=== PATIENT | male | born 1955 | race Caucasian/White ===

== ENCOUNTER 2018-01-27 17:23 | Emergency (ER) | payer OTHER ==
[~2018-01-27] VITALS: Ht 167.6 cm; Wt 72.6 kg
[~2018-01-27 17:23] MED LIST: DURICEF500 MG; METFORMIN HCL500 MG PO; URSO FORTE500 MG; [UNRECOGNIZED DRUG - OTHER]
== END 2018-01-27 22:28 | disposition home or self-care (01) ==
LOC: ER 17:23
DX: E11.65 Type 2 diabetes mellitus with hyperglycemia (principal); Z91.14 Patient's other noncompliance with medication regimen

== ENCOUNTER 2021-12-31 18:49 | Inpatient (IN) | payer OTHER ==
[~2021-12-31] VITALS: Ht 152.4 cm; Wt 63.5 kg
[2021-12-31] MEDS ORDERED: HUMULIN 70100 UNIT/2 SQ (19:18)
[2021-12-31] MEDS ORDERED: LUMIGAN2.5 M1 OP (19:21)
[2021-12-31] MEDS ORDERED: ALPHAGAN P5 M2 OP (19:21)
[2021-12-31] MEDS ORDERED: TRUSOPT10 ML OP (19:22)
== END 2022-01-19 15:46 | disposition home or self-care (01) | DRG 638 ==
LOC: ER 18:49 → MEDJ 01-01 00:27 → SEC-K 01-01 00:27 → MEDJ 01-01 12:16
PROVIDERS: ADMIT Internal Medicine; ATTEND Internal Medicine
PROC: BQ3FZZZ Magnetic Resonance Imaging (MRI) of Left Lower Leg (ICD-10-PCS; principal; 2022-01-01)
PROC: 02HV33Z Insertion of Infusion Device into Superior Vena Cava, Percutaneous Approach (ICD-10-PCS; 2022-01-10)
DX: E11.621 Type 2 diabetes mellitus with foot ulcer (principal); E11.52 Type 2 diabetes mellitus with diabetic peripheral angiopathy with gangrene; L97.528 Non-pressure chronic ulcer of other part of left foot with other specified severity; M86.8X7 Other osteomyelitis, ankle and foot; I96 Gangrene, not elsewhere classified; L03.032 Cellulitis of left toe; Z79.4 Long term (current) use of insulin; E11.69 Type 2 diabetes mellitus with other specified complication; E11.628 Type 2 diabetes mellitus with other skin complications; Z20.822 Contact with and (suspected) exposure to COVID-19
CPT/HCPCS: 73725

== ENCOUNTER → 2022-02-05 | Emergency (ER) | payer OTHER ==
[~2022-02-05] VITALS: Ht 165.1 cm; Wt 65.8 kg
[~2022-02-05] MED LIST changes: +ALPHAGAN P5 M2 OP; +HUMULIN 70100 UNIT/2 SQ; +LUMIGAN2.5 M1 OP; +TRUSOPT10 ML OP
== END | disposition left against medical advice (07) ==
LOC: ER 15:07
DX: Z53.21 Procedure and treatment not carried out due to patient leaving prior to being seen by health care provider (principal)

== ENCOUNTER 2023-03-03 10:29 | Inpatient (IN) | payer OTHER ==
[~2023-03-03] VITALS: Ht 165.1 cm; Wt 65.8 kg
[2023-03-03 15:42] LABS: HEMATOCRIT 42.4 % (39.0-48.0); HEMOGLOBIN 14.5 g/dL (13-16.00); MEAN CELL VOLUME 88.8 fL (80.0-100.00); MEAN CORPUSCULAR HEMOGLOBIN 30.3 pg (27.00-32.0); MEAN CORPUSCULAR HGB CONC 34.1 g/dl (32.0-36.0); PLATELET COUNT 240 K/uL (150-450); RED BLOOD COUNT 4.78 M/uL (4.00-6.00); RED CELL DISTRIBUTION WIDTH 13.3 % (11.5-14.5)
[2023-03-03 16:08] LABS: ALBUMIN 3.8 gm/dL (3.4-5.0); BILIRUBIN TOTAL 0.44 mg/dL (0.3-1.2); CALCIUM 10.4 mg/dL (8.5-10.1); CREATININE SERUM 1.14 mg/dL (0.70-1.30); GFR 64.07; GLOBULINA 3.9 G/DL (2.4-3.5); POTASSIUM 4.55 mEq/L (3.5-5.1); TOTAL PROTEIN 7.7 gm/dL (6.4-8.2)
[2023-03-03 16:09] LABS: INR < 0.93; PARTIAL THROMBOPLASTIN TIME 20.7 SECONDS (22.0-34.0); PROTHROMBIN TIME 9.8 SECONDS (9.0-11.5)
[2023-03-03 17:27] LABS: PH,URINE 6.5 (5.0-8.0); URINE APPEARANCE Clear; URINE BILIRRUBIN Negative (NEGATIVE); URINE BLOOD Negative; URINE COLOR Yellow; URINE LEUKOCYTE Negative; URINE NITRATE Negative; URINE PROTEIN Trace (NEGATIVE); URINE UROBILINOGEN 0.2 E.U./dl
[2023-03-03 17:28] LABS: URINE RBC 6.3 uL (0.0-20.8)
[2023-03-03 17:36] LABS: URINE BACTERIA 0 uL (0.0-1933); URINE EPITHELIAL CELLS 0.7 uL (0.0-38.8); URINE GLUCOSE 100 MG/DL (NEGATIVE); URINE WBC 1.2 uL (0.0-23.2)
[2023-03-07 08:27] LABS: HEMATOCRIT 35.3 % (39.0-48.0); HEMOGLOBIN 12.3 g/dL (13-16.00); MEAN CELL VOLUME 87.2 fL (80.0-100.00); MEAN CORPUSCULAR HEMOGLOBIN 30.4 pg (27.00-32.0); MEAN CORPUSCULAR HGB CONC 34.9 g/dl (32.0-36.0); PLATELET COUNT 185 K/uL (150-450); RED BLOOD COUNT 4.05 M/uL (4.00-6.00)
[2023-03-07 08:37] LABS: ALBUMIN 3.2 gm/dL (3.4-5.0); BILIRUBIN TOTAL 0.2 mg/dL (0.3-1.2); CALCIUM 9.1 mg/dL (8.5-10.1); CREATININE SERUM 0.88 mg/dL (0.70-1.30); GFR 86.38; GLOBULINA 2.5 G/DL (2.4-3.5); MAGNESIUM 1.9 mg/dL (1.8-2.4); POTASSIUM 3.86 mEq/L (3.5-5.1); TOTAL PROTEIN 5.7 gm/dL (6.4-8.2)
[2023-03-07 08:38] LABS: C-REACTIVE PROTEIN 0.34 MG/DL (0.00-0.29)
[2023-03-12 06:26] LABS: HEMATOCRIT 38.7 % (39.0-48.0); HEMOGLOBIN 13.3 g/dL (13-16.00); MEAN CELL VOLUME 86.6 fL (80.0-100.00); MEAN CORPUSCULAR HEMOGLOBIN 29.8 pg (27.00-32.0); MEAN CORPUSCULAR HGB CONC 34.4 g/dl (32.0-36.0); PLATELET COUNT 177 K/uL (150-450); RED BLOOD COUNT 4.47 M/uL (4.00-6.00); RED CELL DISTRIBUTION WIDTH 12.8 % (11.5-14.5)
[2023-03-12 07:24] LABS: ALBUMIN 3.5 gm/dL (3.4-5.0); BILIRUBIN TOTAL 0.33 mg/dL (0.3-1.2); CALCIUM 9.6 mg/dL (8.5-10.1); CREATININE SERUM 0.85 mg/dL (0.70-1.30); GFR 89.9; GLOBULINA 2.7 G/DL (2.4-3.5); POTASSIUM 4.15 mEq/L (3.5-5.1); TOTAL PROTEIN 6.2 gm/dL (6.4-8.2)
== END 2023-03-12 15:30 | disposition home or self-care (01) | DRG 638 ==
LOC: ER 10:29 → MEDJ 18:29
PROVIDERS: Emergency Medicine; Internal Medicine Infectious Disease; ADMIT Specialist; ATTEND Specialist
PROC: BQ3GZZZ Magnetic Resonance Imaging (MRI) of Right Ankle (ICD-10-PCS; principal; 2023-03-03)
DX: E11.621 Type 2 diabetes mellitus with foot ulcer (principal); L97.419 Non-pressure chronic ulcer of right heel and midfoot with unspecified severity; N17.9 Acute kidney failure, unspecified; D72.829 Elevated white blood cell count, unspecified; Z79.4 Long term (current) use of insulin; Z78.9 Other specified health status
CPT/HCPCS: 73221

== ENCOUNTER 2024-02-05 10:45 | Emergency (ER) | payer OTHER ==
[~2024-02-05] VITALS: Ht 165.1 cm; Wt 71.7 kg
[2024-02-05] MEDS ORDERED: DEXAMETHASONE SODIUM PHOSPHATE 4 MG/ML VIAL IV STA (13:00)
[2024-02-05] MEDS ORDERED: ENOXAPARIN SODIUM 60 MG/0.6 ML SYRINGE SUBCUTANEO STA (13:01)
[2024-02-05 13:30] LABS: HEMATOCRIT 41.8 % (39.0-48.0); HEMOGLOBIN 14.5 g/dL (13-16.00); MEAN CELL VOLUME 89.3 fL (80.0-100.00); MEAN CORPUSCULAR HEMOGLOBIN 30.9 pg (27.00-32.0); MEAN CORPUSCULAR HGB CONC 34.6 g/dl (32.0-36.0); PLATELET COUNT 172 K/uL (150-450); RED BLOOD COUNT 4.68 M/uL (4.00-6.00); RED CELL DISTRIBUTION WIDTH 13.4 % (11.5-14.5)
[2024-02-05 13:48] LABS: INR 0.94; PARTIAL THROMBOPLASTIN TIME 25.5 SECONDS (22.0-34.0); PROTHROMBIN TIME 10.3 SECONDS (9.0-11.5)
[2024-02-05 13:55] LABS: CALCIUM 9.7 mg/dL (8.5-10.1); CREATININE SERUM 1.3 mg/dL (0.70-1.30); GFR 54.9; POTASSIUM 4.38 mEq/L (3.5-5.1)
[2024-02-05 14:46] LABS: URINE APPEARANCE Clear; URINE BILIRRUBIN Negative (NEGATIVE); URINE BLOOD Trace; URINE COLOR Yellow; URINE KETONE Trace (NEGATIVE); URINE LEUKOCYTE Negative; URINE NITRATE Negative; URINE PROTEIN 30 (NEGATIVE)
[2024-02-05] MEDS ORDERED: CLEVIDIPINE BUTYRATE 100 ML IV SCH (15:00)
[2024-02-05 15:32] LABS: URINE BACTERIA 1.2 uL (0.0-1933); URINE CAST 0.14 uL (0.0-1.40); URINE EPITHELIAL CELLS 0.3 uL (0.0-38.8); URINE GLUCOSE >=1000 MG/DL (NEGATIVE); URINE WBC 0.4 uL (0.0-23.2)
[2024-02-05] MEDS ORDERED: INSULIN REGULAR, HUMAN 1,000 UNIT/10 ML UNITS IV ONE (17:00)
[2024-02-05] MEDS ORDERED: NIFEDIPINE 10 MG CAPSULE PO ONE (17:15)
[2024-02-05] MEDS ORDERED: COZAAR25 MG PO (18:15)
== END 2024-02-05 21:43 | disposition home or self-care (01) ==
LOC: ER 10:47
PROVIDERS: General Practice
DX: I10 Essential (primary) hypertension (principal); E11.9 Type 2 diabetes mellitus without complications; Z79.4 Long term (current) use of insulin; I25.2 Old myocardial infarction